=== PATIENT | male | born 1940 | race Caucasian/White ===

== ENCOUNTER 2025-01-08 09:59 | Outpatient (AMB) | payer MEDICARE, BC, SELFPAY ==
--- NOTE | 2025-01-08 10:03 | MHC.PC.OV ---
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 Intake Note: New patient visit Agronomy Specialist Required: No Allergies No Known Allergies Allergy (Verified 01/08/25 10:04) Medication List - Last Reconciled 01/08/25 by Zak Eng MD cholecalciferol (vitamin D3) 25 mcg PO DAILY losartan 25 mg PO DAILY omeprazole 20 mg PO DAILY pravastatin 80 mg PO DAILY Tobacco use date assessed: 01/08/25 Fall risk assessment: No Falls in past year Last assessed Fall Risk: 01/08/25 Dental Screening Dental Screen Date: 01/08/25 Did you have a dental visit in the last 12 months?: Yes Did you have a dental problem in the last 6 months where you did not have access to dental care?: No Was dental information given to patient?: Patient has dentist HPI 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 ?? Prior PCP:? [place] Last office visit/CPE:? May Check up Acute issue(s):? EST Care Swallowing difficulties. Recent MBS & Fiber Optic Scope at [facility] ?? PMHx:? HTN, HLD, Hiatal Hernia, Vit D Def. Arthritis. CLL Dr Sheehan. Tachycardia Dr Alarcon SurgHx:?Appy. B/L Wrists Carpal Tunnel SocHx: Quit Cigs 1989. EtOH: weekly 1 beer. [facility] Social History Housing: House (one in [place] on in [place]) Patient Tobacco Use Status: Former Tobacco user (quit 33 years ago) Cigarette Packs Per Day: 1 Years Smoked: 15 e-Cigarette/Vaping Use: Never Used service: Yes ([employer] for 6 years) Current occupational status: retired Cognitive needs: No Hearing needs: Yes (hearing aid) Vision needs: Yes (reading glasses) Questionnaire PHQ-9 Over the last 2 weeks, how often have you been bothered by any of the following problems? 1. Little interest or pleasure in doing things: not at all 2. Feeling down, depressed, or hopeless: not at all 3. Trouble falling or staying asleep, or sleeping too much: not at all 4. Feeling tired or having little energy: not at all 5. Poor appetite or overeating: not at all 6. Feeling bad about yourself - or that you are a failure or have let yourself or your family down: not at all 7. Trouble concentrating on things, such as reading the newspaper or watching television: not at all 8. Moving or speaking so slowly that other people could have noticed. Or the opposite - being so fidgety or restless that you have been moving around a lot more than usual: not at all 9. Thoughts that you would be better off or of hurting yourself in some way: not at all Total score: 0 Source: Developed by Drs. Dirk You, Jenni Alexandre, Darren Padilla and colleagues, with an educational ming from [employer]. Thrive Questionnaire I am a: Patient What is your living situation today?: I have a steady place to live Within the past 12 months, did the food you bought not last and you didn't have the money to get more?: Never true Within the past 12 months, did you worry whether your food would run out before you got money to buy more?: Never true Do you have trouble paying for medicines?: No Do you have trouble getting transportation to medical appointments?: No Do you have trouble paying your heating and electricity bill?: No Do you have trouble taking care of your child, family member or friend?: No Do you have trouble with day-to-day activities such as bathing, preparing meals, shopping, managing finances, etc.?: No Are you currently unemployed and looking for a job?: No Are you interested in more education?: No Please select the resources that you would like help with: None Currently or been in a relationship where the following occur: No concerns reported THRIVE Score: 0 AUDIT C Alcohol Use Questionnaire (AUDIT-C) 1. How often do you have a drink containing alcohol?: Monthly or less 2. How many drinks containing alcohol do you have on a typical day when you are drinking?: 1 or 2 3. How often do you have six or more drinks on one occasion?: Never Total Score: 1 SHANTAL-7 AMB Questionnaire SHANTAL-7 Feeling nervous, anxious, or on edge: 0 = Not at all Not being able to stop or control worryin = Not at all Worrying too much about different things: 0 = Not at all Trouble relaxin = Not at all Being so restless that it is hard to sit still: 0 = Not at all Becoming easily annoyed or irritable: 0 = Not at all Feeling afraid as if something awful might happen: 0 = Not at all Total SHANTAL-7 score (0-4 normal; 5-9 mild; 10-14 moderate; 15-21 severe): 0 Source: Developed by Drs. Dirk You, Jenni Alexandre, Darren Padilla and colleagues, with an educational ming from [employer]. Physical exam (Primary Care) Vital Signs: Last Vital Signs Temp 97.7 F 01/08/25 10:07 Pulse 95 01/08/25 10:07 Resp 16 01/08/25 10:07 BP 126/72 01/08/25 10:07 Pulse Ox 98 01/08/25 10:07 Oxygen Delivery Method Room Air 01/08/25 10:07 BMI result Body Mass Index 28.5 Tobacco/Smoking Status: Tobacco use Status Tobacco use date assessed 01/08/25 01/08/25 10:14 Patient Tobacco Use Status Former Tobacco user (quit 33 01/08/25 10:14 years ago) e-Cigarette/Vaping Use Never Used 01/08/25 10:14 PHQ-9: PHQ-9 Score PHQ-9: Total score 0 01/08/25 10:50 Currently or been in a relationship where the following occur: No concerns reported Coding Level of Care Code New Pt Level 4 (57184) Diagnoses Hypertension I10 Hyperlipidemia E78.5 Difficulty swallowing R13.10 GERD (gastroesophageal reflux disease) K21.9 Hiatal hernia K44.9 Arthritis M19.90 CLL (chronic lymphocytic leukemia) C91.10 Hand deformity M21.949 Laboratory exam ordered as part of routine general medical examination Z00.00 Assessment & Plan Assessment & Plan (1) Hypertension: Code(s): I10 - Essential (primary) hypertension Category: Medical Plan: Blood pressure is controlled on losartan. Goal is less than 130/80 Continue current medication (2) Hyperlipidemia: Code(s): E78.5 - Hyperlipidemia, unspecified Category: Medical Plan: History of hyperlipidemia and difficulty tolerating statins. He is tolerating pravastatin Continue current medication and we will check lipids (3) Difficulty swallowing: Code(s): R13.10 - Dysphagia, unspecified Category: Medical Plan: Difficulty swallowing and MBS as well as fiberoptic scope has revealed a hiatal hernia. Patient was placed on omeprazole He says he does not have any further follow-up Continue omeprazole He will let me know if difficulty swallowing does not resolve (4) GERD (gastroesophageal reflux disease): Code(s): K21.9 - Gastro-esophageal reflux disease without esophagitis Category: Medical Plan: As above, continue omeprazole (5) Hiatal hernia: Code(s): K44.9 - Diaphragmatic hernia without obstruction or gangrene Category: Medical Plan: As above (6) Arthritis: Code(s): M19.90 - Unspecified osteoarthritis, unspecified site Category: Medical Plan: History of arthritis bilateral hands Check inflammatory markers Use ibuprofen as needed (7) CLL (chronic lymphocytic leukemia): Code(s): C91.10 - Chronic lymphocytic leukemia of B-cell type not having achieved remission Category: Medical Plan: History of CLL which patient says is stable Follow-up with Hematology-Oncology as recommended (8) Hand deformity: Code(s): M21.949 - Unspecified acquired deformity of hand, unspecified hand Category: Medical Plan: check inflammatory markers (9) Laboratory exam ordered as part of routine general medical examination: Code(s): Z00.00 - Encounter for general adult medical examination without abnormal findings Category: Medical Plan: Check labs Orders: Orders Comprehensive [place]. Panel Fast 01/08/25 Z00.00 - Encounter for general adult medical examination without abnormal findings Microalbumin, Random (w Creat) 01/08/25 I10 - Essential (primary) hypertension UA CC w/rflx Micro + Cult 01/08/25 Z00.00 - Encounter for general adult medical examination without abnormal findings Vitamin D 25-OH Total 01/08/25 E55.9 - Vitamin D deficiency, unspecified Rheumatoid Factor 01/08/25 M19.90 - Unspecified osteoarthritis, unspecified site Cyclic Citrullinated Peptide 01/08/25 M19.90 - Unspecified osteoarthritis, unspecified site CRP High Sensitivity 01/08/25 M19.90 - Unspecified osteoarthritis, unspecified site Complete Blood Count Auto Diff 01/08/25 Z00.00 - Encounter for general adult medical examination without abnormal findings Lipid Panel 01/08/25 Z00.00 - Encounter for general adult medical examination without abnormal findings Prostate Specific Antigen Scr 01/08/25 Z12.5 - Encounter for screening for malignant neoplasm of prostate TSH reflex Free T4 01/08/25 Z00.00 - Encounter for general adult medical examination without abnormal findings Erythrocyte Sedimentation Rate 01/08/25 M19.90 - Unspecified osteoarthritis, unspecified site
[2025-01-08 10:07] VITALS: BP 126/72; PULSE 95; RESP 16; TEMP 36.5; O2SAT 98; BMI 28.5
--- OUTSIDE RECORDS SUMMARY | 2025-01-08 11:59 | XMS_ITS | Clinical Summary ---
Author Organization [facility] Address [address] [place] [address] [place] [phone] Phone Care Team Providers Care Elevator Examiner Name Role Phone Pcp, Unknown Primary Care Provider Unavailabl e Encounters Date Type Department Care Team Description 01/01/2025 Ancillary Orders [facility],Outside Imaging [address] [place] [address] Unknown, MD Giuseppe 12/28/2024 12:00 PM EDT Office Visit [facility] at [address] [phone] Mathew Hargrove PA-C Primary osteoarthritis of right wrist (Primary Dx); Status post proximal row carpectomy of wrist 12/26/2024 - 12/26/2024 11:59 PM EDT Hospital Encounter [facility],Outside Imaging [address] [place] [address] Unknown, UnknownMD Discharge Disposition: Home or Self Care from Last 3 Months Social History Tobacco Use Types Packs/Day Years Used Date Smoking Tobacco: Never Assessed Education Answer Date Recorded Are you interested in more education? Not on sudha e 12/28/2024 Are you concerned about learning? Not on file 12/28/2024 No 12/28/2024 No 12/28/2024 Digital Access Answer Date Recorded No 12/28/2024 No 12/28/2024 Reliable internet access at home? Not on file 12/28/2024 Device with a working camera? Not on file Sex and Gender Information Value Date Recorded Sex Assigned at Not on file Legal Sex Male 11:37 AM EDT Gender Identity Not on file Sexual Orientation Not on file Plan of Treatment Upcoming Encounters Date Type Department Care Team (Late st Contact Info) Description 01/31/2025 11:00 AM EST Office Visit [facility] Orth[facility] & Sports Medicine [address] [place] [phone] Amanda Cortés PA-C [address] [place] [address] Orthopedics & Sports Medicine, [facility] [place] [address] [email or web address] Health Maintenance Due Date Last Done Comments Adult Td,Tdap Booster 1940 DEPRESSION SCREENING 1952 PNEUMOCOCCAL VACCINES (50+ y ears) (1 of 1 - PCV) 02/18/1990 ZOSTER VACCINES (1 of 2) 02/18/1990 RSV VACCINE (1 - 1-dose 75+ series) 02/18/2015 INFLUENZA VACCINE (#1) 2024 COVID-19 VACCINE ( - 2024-2 6 season) 2024 HEPATITIS A VACCINES Aged Out No long er eligible based on patient's age to complete this topic HIB VACCINES Aged Out No longer eligi ble based on patient's age to complete this topic MENINGOCOCCAL VACCINES (ACWY) Aged Out No longer eligible based on patient's age to complete this topic MENINGOCOCCAL VACCINES (B) Aged Out N o longer eligible based on patient's age to complete this topic Medical Devices Not on file Procedures Procedure Name Priority Date/Time Associated Diagnosis Comments XR UPPER EXTREMITY OUTSIDE (NO INTERPRETATION) Routine 12/26/2024 12:00 AM EDT from Last 3 Months Results * XR Upper Extremity Outside (No Interpretation) (12/26/2024 12:00 AM EDT) Narrative SYSTEMGENERATED, DOCUMENTATION - 01/01/2025 10:06 AM EDT This study is for PACS storage only and not for interpretation. us Unknown Unknown MD [facility] OUTSIDE IMAGING W/OUT INT ERPRETATION Final Result from Last 3 Months Insurance MEDICARE PART A & B [employer] MEDEX SUPPLEMENT MEDICARE PART A & B [employer] MEDEX SUPPLEMENT MEDICARE PART A & B [employer] MEDEX SUPPLEMENT MEDICARE PART A & B [employer] MEDEX SUPPLEMENT MEDICARE PART A & B [employer] [place] MED[place] SUPPLE[place] MEDICARE PART A & B [employer] MEDEX SUPPLEMENT Care Teams Elevator Examiner Relationship Specialty Start Date End Date Pcp, Unknown PCP - General 12/28/24 Additional Source Comments The information contained in this document represents components of the legal health record. It is not the complete legal health record.[facility]
--- OUTSIDE RECORDS SUMMARY | 2025-01-08 11:59 | XMS_ITS | Clinical Summary ---
Author Organization [facility] Address [address] [place] [address] Care Team Providers Care Synthetic Chemist Name Role Phone Stan Loco MD Primary Care Provider [phone] Allergies No known active allergies Medications Medication Sig Dispensed Refills Start Date End Date Status losartan (COZAAR) tablet 25 mg Take 1 tablet (25 mg total) by mouth daily. 0 12/05/2019 Active pravastatin (PRAVACHOL) tablet 80 mg Take 1 tablet (80 mg total) by mouth daily. 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 Chronic lymphocytic leukemia 11/04/2017 Overview: Overview: Monoclonal B-cell Lymphocytosis GERD (gastroesophageal reflux disease) 8 Colon polyp 11/04/2017 Pulmonary nodules 11/04/2017 Overview: Overview: 2016 CT Bilateral, Stable, small pulmonary nodules Social History Tobacco Use Types Packs/Day Years Used Date Smoking Tobacco: Never Assessed Sex and Gender Information Value Date Recorded Sex Assigned at Not on file Gender Identity Not on file Sexual Orientation Not on file Job Start Date Occupation Industry Not on file Not on file Not on file Last Filed Vital Signs Vital Sign Reading Time Taken Comments Blood Pressure 188/63 11/30/2023 11:17 AM EDT Pulse 55 11/30/2023 11:17 AM EDT Temperature 36.3 C (97.4 F) 11/30/2023 11:17 AM EDT Respiratory Rate - - Oxygen Saturation 100% 11/30/2023 11:17 AM EDT Inhaled Oxygen Concentration - - Weight 80.7 kg (178 lb) 11/30/2023 11:17 AM EDT Height 180.3 cm (5' 11 ) 11/27/2021 11:18 AM EDT Body Mass Index 24.83 11/27/2021 11:18 AM EDT Plan of Treatment Health Maintenance Due Date Last Done Comments Pneumococcal Vaccine (1 of 2 - PCV) 02[birth year]18/1946 Depression Screening 1952 Preventative Health Evaluation 02/18/1958 DTap / Tdap / Td (1 - Tdap) 02/18/1959 Shingrix-Zoster Vaccine (1 o f 2) 02/18/1959 Fall Risk Assessment 02/18/2005 RSV Adult > 60+ Yrs or (1 - 1-dose 75+ series) 02/18/2015 COVID-19 Vaccine (3 - Pfizer risk series) 06/09/2020 05/12/2020, 04/20/2020 Influenza Vaccine (#1) 2024 02/15/2017 Hepatitis B Vaccines Aged Out No long er eligible based on patient's age to complete this topic RSV Ped < 20 months Aged Out No longe r eligible based on patient's age to complete this topic Care Teams Synthetic Chemist Relationship Specialty Start Date End Date Stan Loco MD PCP - General Internal Medicine 12/06/19
--- OUTSIDE RECORDS SUMMARY | 2025-01-08 11:59 | XMS_ITS | Clinical Summary ---
Author Organization [facility] Address [address] [place] [address] Phone Care Team Providers Care Catalyst Supervisor Name Role Phone Stan Loco MD Primary Care Provider Allergies No known active allergies Medications losartan (COZAAR) 25 mg tablet Take 1 tablet (25 mg total) by mouth 1 (one) time each day. Active omeprazole (PriLOSEC) [address] capsule Take 1 capsule (20 mg total) by mouth 1 (one) time each day. Active pravastatin (PRAVACHOL) 80 mg tablet Take 1 tablet (80 mg total) by mouth 1 (one) time each day. Active Active Problems Problem Noted Date Diagnosed Date CLL (chronic lymphocytic yair kemia) ([facility] V24, [facility] V28) 12/07/2024 Anemia 12/07/2024 Encounters Date Type Department Care Team Description 12/07/2024 11:15 AM EDT Office Visit [facility] Hematology Oncology [address] [place] [phone] Janae Jones MD CLL (chronic lymphocytic leukemia) ([facility] V24, [facility] V28) (Primary Dx); Anemia, unspecified type; Oropharyngeal dysphagia 11/16/2024 Telephone [facility] Hematology Oncology [address] [place] [phone] Janae Jones MD from Last 3 Months Immunizations Immunization Administration Dates Next Due Pfizer SARS-CoV-2 COVID-19, mRNA, LNP-S, preservative free 05/12/2020,04/20/2020 Social History Tobacco Use Types Packs/Day Years Used Date Smoking Tobacco: Former Cigarettes 1 0 - 1969 Tobacco Cessation:Counseling Given: Not Answered Comments:Patient is uncertain of start date - quit in 1989 Sex and Gender Information Value Date Recorded Sex Assigned at Not on file Legal Sex Male 6:38 AM EST Gender Identity Not on file Sexual Orientation Not on file Obstetrics History Last Filed Vital Signs Vital Sign Reading Time Taken Comments Blood Pressure 161/67 12/07/2024 11:26 AM EDT Pulse 54 12/07/2024 11:26 AM EDT Temperature 36.8 C (98.2 F) 12/07/2024 11:26 AM EDT Respiratory Rate - - Oxygen Saturation 99% 12/07/2024 11:26 AM EDT Inhaled Oxygen Concentration - - Weight 81.2 kg (179 lb) 12/07/2024 11:26 AM EDT Height 180.3 cm (5' 11 ) 12/07/2024 11:26 AM EDT Body Mass Index 24.97 12/07/2024 11:26 AM EDT Plan of Treatment Upcoming Encounters Date Type Department Care Team (Late st Contact Info) Description 12/06/2025 11:00 AM EDT Office Visit [facility] Hematology Oncology [address] [place] [phone] Susanne-Janae Conway MD [address] [place] [phone] Health Maintenance Due Date Last Done Comments Zoster Vaccines (1 of 2) 02/18/1959 RSV Immunization Adult Patients (1 - 1-dose 75+ series) 02/18/2015 Cholesterol Screening (Lipid Panel) 02/20/2022 Falls Risk Assessment 02/20/2022 Medicare Annual Wellness Visit 02/20/2022 Social Influencers of Health Screening 02/20/2022 Depression Screening 03/14/2024 COVID-19 Vaccine ( season) 2024 12/11/2020, 05/12/2020, 04/20/2020 Influenza Vaccine (#1) 2024 , 02/12/2022, 01/15/2021, Additional history exists Hypertension/CHF/CAD Annual BMP Blood Test 11/26/2025 11/26/2024 DTaP,Tdap,and Td Vaccines (2 - Td or Tdap) 09/17/2032 09/17/2022 Pneumococcal Vaccine: 50+ Years Completed 09/17/2022 HIB Vaccines Aged Out No longer eligi ble based on patient's age to complete this topic HPV Vaccines Aged Out No longer eligi ble based on patient's age to complete this topic Hepatitis A Vaccines Aged Out No long er eligible based on patient's age to complete this topic Hepatitis B Vaccines Aged Out No long er eligible based on patient's age to complete this topic IPV Vaccines Aged Out No longer eligi ble based on patient's age to complete this topic MMR Vaccines Aged Out No longer eligi ble based on patient's age to complete this topic Meningococcal ACWY Vaccine Aged Out N o longer eligible based on patient's age to complete this topic Meningococcal B Vaccine Aged Out No l onger eligible based on patient's age to complete this topic RSV Immunization Patients Under 20 months Aged Out No longer eligible based on patient's age to complete this topic Varicella Vaccines Aged Out No longer eligible based on patient's age to complete this topic Procedures Procedure Name Priority Date/Time Associated Diagnosis Comments CBC WITH AUTO DIFFERENTIAL Routine 11/26/2024 12:30 PM EDT CLL (chronic lymphocytic leukemia) ([facility] V24, [facility] V28) CBC AND DIFFERENTIAL Routine 11/26/2024 12:30 PM EDT CLL (chronic lymphocytic leukemia) ([facility] V24, [facility] V28) COMPREHENSIVE METABOLIC PANEL Routine 11/26/2024 12:30 PM EDT CLL (chronic lymphocytic leukemia) ([facility] V24, [facility] V28) LACTATE DEHYDROGENASE Routine 11/26/2024 12:30 PM EDT CLL (chronic lymphocytic leukemia) ([facility] V24, [facility] V28) IMMUNOGLOBULIN IGG Routine 11/26/2024 12 :30 PM EDT CLL (chronic lymphocytic leukemia) ([facility] V24, [facility] V28) from Last 3 Months Results * (ABNORMAL) CBC auto differential (11/26/2024 12:30 PM EDT) [facility] WBC 8.5 4.8 - 10.8 K/mcL LAB HEMETOLOGY METHOD 11/26/2024 2:02 PM [facility] RBC 4.20(L) 4.50 - 5.50 M/mcL LAB [facility] Hemoglobin 12.8(L) 13.5 - 17.5 g/dL LAB HEMETOLOGY METHOD 11/26/2024 2:02 PM [facility] Hematocrit 38.6(L) 42.0 - 54.0 % LAB HEMETOLOGY METHOD 11/26/2024 2:02 PM [facility] MCV 91.5 79.0 - 98.0 FL LAB HEMETOLOGY METHOD 11/26/2024 2:02 PM [facility] MCH 30.3 27.0 - 32.0 pcg LAB HEMETOLOGY METHOD 11/26/2024 2:02 PM [facility] MCHC 33.2 32.0 - 37.0 g/dL LAB HEMETOLOGY METHOD 11/26/2024 2:02 PM [facility] RDW 13.9 11.0 - 15.0 % LAB HEMETOLOGY METHOD 11/26/2024 2:02 PM [facility] Platelets 256 130 - 400 K/mcL LAB HEMETOLOGY METHOD 11/26/2024 2:02 PM [facility] MPV 9.2 7.0 - 11.0 FL LAB HEMETOLOGY METHOD 11/26/2024 2:02 PM [facility] NRBC 0.0 <1.0 % LAB HEMETOLOGY METHOD 11/26/2024 2:02 PM [facility] NRBC Absolute 0.00 <0.10 K/mcL LAB HEMETOLOGY METHOD 11/26/2024 2:02 PM [facility] Neutrophils Relative 49.5 % LAB HEMETOLOGY METHOD 11/26/2024 2:02 PM [facility] Lymphocytes Relative 35.6 % LAB HEMETOLOGY METHOD 11/26/2024 2:02 PM [facility] Monocytes Relative 9.8 % LAB HEMETOLOGY METHOD 11/26/2024 2:02 PM [facility] Eosinophils Relative 3.3 % LAB HEMETOLOGY METHOD 11/26/2024 2:02 PM [facility] Basophils Relative 1.2 % LAB HEMETOLOGY METHOD 11/26/2024 2:02 PM [facility] Immature Granulocytes Relative 0.6 % LAB HEMETOLOGY METHOD 11/26/2024 2:02 PM [facility] Neutrophils Absolute 4.20 1.50 - 7.00 K/mcL LAB HEMETOLOGY METHOD 11/26/2024 2:02 PM [facility] Lymphocytes Absolute 3.02 1.00 - 5.00 K/mcL LAB HEMETOLOGY METHOD 11/26/2024 2:02 PM [facility] Monocytes Absolute 0.83 0.20 - 1.00 K/mcL LAB HEMETOLOGY METHOD 11/26/2024 2:02 PM [facility] Eosinophils Absolute 0.28 0.00 - 0.50 K/mcL LAB HEMETOLOGY METHOD 11/26/2024 2:02 PM [facility] Basophils Absolute 0.10 0.00 - 0.20 K/mcL LAB HEMETOLOGY METHOD 11/26/2024 2:02 PM [facility] Immature Granulocytes Absolute 0.05(H) 0.00 - 0.03 K/mcL LAB HEMETOLOGY METHOD 11/26/2024 2:02 PM EDT [facility] Blood Venous blood specimen / Unknown Venipuncture / Unknown 11/26/2024 12:30 PM EDT 11/26/2024 1:35 PM EDT us Janae Jones MD LAB BLOOD ORDERABLE S Final Result [facility] [address] [place] [address], [place] [phone] * Lactate dehydrogenase (11/26/2024 12:30 PM EDT) LDH 177 120 - 246 unit/L LAB CHEMISTRY METHOD 11/26/2024 2:15 PM EDT [facility] Blood Venous blood specimen / Unknown Venipuncture / Unknown 11/26/2024 12:30 PM EDT 11/26/2024 1:35 PM EDT us Janae Jones MD LAB BLOOD ORDERABLE S Final Result Performing Organization Address City/[facility]/ZIP Co de Phone Number [facility] [address] [place] [address], [place] [phone] * Immunoglobulin IgG (11/26/2024 12:30 PM EDT) Total IgG 1,250 549 - 1,584 mg/dL LAB CHEMISTRY METHOD 11/26/2024 2:15 PM EDT [facility] Blood Venous blood specimen / Unknown Venipuncture / Unknown 11/26/2024 12:30 PM EDT 11/26/2024 1:35 PM EDT us Janae Jones MD LAB BLOOD ORDERABLE S Final Result [facility] [address] [place] [address], [place] [phone] * Comprehensive metabolic panel (11/26/2024 12:30 PM EDT) Sodium 136 133 - 145 mmol/L LAB CHEMISTRY METHOD 11/26/2024 2:15 PM [facility] Potassium 4.6 3.5 - 5.5 mmol/L LAB CHEMISTRY METHOD 11/26/2024 2:15 PM [facility] Chloride 105 96 - 110 mmol/L LAB CHEMISTRY METHOD 11/26/2024 2:15 PM [facility] CO2 26 21 - 32 mmol/L LAB CHEMISTRY METHOD 11/26/2024 2:15 PM [facility] Anion Gap 5 3 - 11 LAB CHEMISTRY METHOD 11/26/2024 2:15 PM [facility] Glucose 89 70 - 100 mg/dL LAB CHEMISTRY METHOD 11/26/2024 2:15 PM [facility] BUN 19 5 - 25 mg/dL LAB CHEMISTRY METHOD 11/26/2024 2:15 PM [facility] Creatinine 1.02 0.70 - 1.30 mg/dL LAB CHEMISTRY METHOD 11/26/2024 2:15 PM [facility] eGFR 72 >=60 mL/min/1. 73m2 LAB CHEMISTRY METHOD 11/26/2024 2:15 PM [facility] Comment:Calculation based on the Chronic Kidney Disease Epidemiology Collaboration (CKD-EPI) equation refit without adjustment for race. BUN/Creatinine Ratio 18.6 LAB CHEMISTRY METHOD 11/26/2024 2:15 PM [facility] Calcium 9.1 8.5 - 10.5 mg/dL LAB CHEMISTRY METHOD 11/26/2024 2:15 PM [facility] AST (SGOT) 20 10 - 42 unit/L LAB CHEMISTRY METHOD 11/26/2024 2:15 PM [facility] ALT (SGPT) 17 10 - 60 unit/L LAB CHEMISTRY METHOD 11/26/2024 2:15 PM EDT [facility] Alkaline Phosphatase 62 42 - 121 unit/L LAB CHEMISTRY METHOD 11/26/2024 2:15 PM EDT [facility] Total Protein 6.9 6.0 - 8.0 g/dL LAB CHEMISTRY METHOD 11/26/2024 2:15 PM EDT [facility] Albumin 3.7 3.2 - 5.0 g/dL LAB CHEMISTRY METHOD 11/26/2024 2:15 PM EDT [facility] Total Bilirubin 0.6 0.0 - 1.4 mg/dL LAB CHEMISTRY METHOD 11/26/2024 2:15 PM EDT [facility] Blood Venous blood specimen / Unknown Venipuncture / Unknown 11/26/2024 12:30 PM EDT 11/26/2024 1:35 PM EDT Subramrd Jones MD LAB BLOOD ORDERABLE S Final Result [facility] [address] [place] [address], from Last 3 Months Insurance MEDICARE [facility] Care Teams Catalyst Supervisor Relationship Specialty Start Date End Date Stan Loco MD [address] [place] [address] PCP - General Internal Medicine 06/23/17
== END 2025-01-08 10:45 | disposition home or self-care (01) ==
LOC: HO.HMCFM 10:01
PROVIDERS: Visit Provider Family Medicine
DX: I10 Essential (primary) hypertension (principal); E78.5 Hyperlipidemia, unspecified; R13.10 Dysphagia, unspecified; K21.9 Gastro-esophageal reflux disease without esophagitis; K44.9 Diaphragmatic hernia without obstruction or gangrene; M19.90 Unspecified osteoarthritis, unspecified site; C91.10 Chronic lymphocytic leukemia of B-cell type not having achieved remission; M21.949 Unspecified acquired deformity of hand, unspecified hand; Z00.00 Encounter for general adult medical examination without abnormal findings

== ENCOUNTER → 2025-01-08 09:59 | Outpatient (BNVA) | payer MEDICARE, BC, SELFPAY | PROVIDERS: Visit Provider Family Medicine | DX: I10 Essential (primary) hypertension (principal); E78.5 Hyperlipidemia, unspecified; R13.10 Dysphagia, unspecified; K21.9 Gastro-esophageal reflux disease without esophagitis; K44.9 Diaphragmatic hernia without obstruction or gangrene; M19.90 Unspecified osteoarthritis, unspecified site; C91.10 Chronic lymphocytic leukemia of B-cell type not having achieved remission; M21.949 Unspecified acquired deformity of hand, unspecified hand | CPT/HCPCS: 99202 ==

== ENCOUNTER 2025-01-24 10:38 | Outpatient (REF) | payer MEDICARE, BC, SELFPAY ==
--- OUTSIDE RECORDS SUMMARY | 2025-01-24 13:02 | XMS_ITS | Clinical Summary ---
Author Organization [facility] Address [address] [place] [address] Phone Care Team Providers Care Acute Care Certified Nursing Assistant Name Role Phone Stan Loco MD Primary [...] Diagnosed Date CLL (chronic lymphocytic yair kemia) ([facility] V24, [facility] V28) 12/07/2024 Anemia 12/07/2024 Encounters Date Type Department Care Team Description 12/07/2024 11:15 AM EDT Office Visit [facility] Hematology Oncology [address] [place] [phone] Janae Jones MD CLL (chronic lymphocytic leukemia) ([facility] V24, [facility] V28) (Primary Dx); Anemia, unspecified type; Oropharyngeal dysphagia 11/16/2024 Telephone [facility] Hematology Oncology [address] [place] [phone] Janae Jones MD from Last 3 Months Immunizations Immunization Administration Dates Next Due Pfizer SARS-CoV-2 COVID-19, mRNA, LNP-S, preservative free 05/12/2020,04/20/2020 Social History Tobacco Use Types Packs/Day Years Used Date Smoking Tobacco: Former Cigarettes 0 1 990 - 1970 Tobacco Cessation:Counseling Given: Not Answered Comments:Patient is [...] Description 12/06/2025 11:00 AM EDT Office Visit [facility] Hematology Oncology [address] [place] [phone] Susanne-Janae Conway MD [address] [place] [phone] Health Maintenance Due Date Last Done Comments Zoster Vaccines (1 of 2) 02/18/1959 RSV Immunization Adult Patients (1 - 1-dose 75+ series) 02/18/2015 Cholesterol Screening (Lipid Panel) 02/20/2022 Falls Risk Assessment 02/20/2022 Medicare Annual Wellness Visit 02/20/2022 Social Influencers of Health Screening 02/20/2022 Depression Screening 03/14/2024 COVID-19 Vaccine ( season) 2024 12/11/2020, 05/12/2020, 04/20/2020 Influenza Vaccine (#1) 2024 3, 02/12/2022, 01/15/2021, Additional history exists Hypertension/CHF/CAD Annual [...] 12:30 PM EDT CLL (chronic lymphocytic leukemia) ([facility] V24, [facility] V28) CBC AND DIFFERENTIAL Routine 11/26/2024 12:30 PM EDT CLL (chronic lymphocytic leukemia) ([facility] V24, [facility] V28) COMPREHENSIVE METABOLIC PANEL Routine 11/26/2024 12:30 PM EDT CLL (chronic lymphocytic leukemia) ([facility] V24, [facility] V28) LACTATE DEHYDROGENASE Routine 11/26/2024 12:30 PM EDT CLL (chronic lymphocytic leukemia) ([facility] V24, [facility] V28) IMMUNOGLOBULIN IGG Routine 11/26/2024 12 :30 PM EDT CLL (chronic lymphocytic leukemia) ([facility] V24, [facility] V28) from Last 3 Months Results * (ABNORMAL) CBC auto differential (11/26/2024 12:30 PM EDT) [facility] WBC 8.5 4.8 - 10.8 K/mcL LAB HEMETOLOGY METHOD 11/26/2024 2:02 PM [facility] RBC 4.20(L) 4.50 - 5.50 M/mcL LAB HEMETOLOGY METHOD 11/[facility]24 [facility] Hemoglobin 12.8(L) 13.5 - 17.5 g/dL LAB HEMETOLOGY METHOD 11/26/2024 2:02 PM [facility] Hematocrit 38.6(L) 42.0 - 54.0 % LAB HEMETOLOGY METHOD 11/26/2024 2:02 PM [facility] MCV 91.5 79.0 - 98.0 FL LAB HEMETOLOGY METHOD 11/26/2024 2:02 PM [facility] MCH 30.3 27.0 - 32.0 pcg LAB HEMETOLOGY METHOD 11/26/2024 2:02 PM [facility] MCHC 33.2 32.0 - 37.0 g/dL LAB HEMETOLOGY METHOD 11/26/2024 2:02 PM [facility] RDW 13.9 11.0 - 15.0 % LAB HEMETOLOGY METHOD 11/26/2024 2:02 PM [facility] Platelets 256 130 - 400 K/mcL LAB HEMETOLOGY METHOD 11/26/2024 2:02 PM [facility] MPV 9.2 7.0 - 11.0 FL LAB HEMETOLOGY METHOD 11/26/2024 2:02 PM [facility] NRBC 0.0 <1.0 % LAB HEMETOLOGY METHOD 11/26/2024 2:02 PM [facility] NRBC Absolute 0.00 <0.10 K/mcL LAB HEMETOLOGY METHOD 11/26/2024 2:02 PM [facility] Neutrophils Relative 49.5 % LAB HEMETOLOGY METHOD 11/26/2024 2:02 PM [facility] Lymphocytes Relative 35.6 % LAB HEMETOLOGY METHOD 11/26/2024 2:02 PM [facility] Monocytes Relative 9.8 % LAB HEMETOLOGY METHOD 11/26/2024 2:02 PM [facility] Eosinophils Relative 3.3 % LAB HEMETOLOGY METHOD 11/26/2024 2:02 PM [facility] Basophils Relative 1.2 % LAB HEMETOLOGY METHOD 11/26/2024 2:02 PM [facility] Immature Granulocytes Relative 0.6 % LAB HEMETOLOGY METHOD 11/26/2024 2:02 PM [facility] Neutrophils Absolute 4.20 1.50 - 7.00 K/mcL LAB HEMETOLOGY METHOD 11/26/2024 2:02 PM [facility] Lymphocytes Absolute 3.02 1.00 - 5.00 K/mcL LAB HEMETOLOGY METHOD 11/26/2024 2:02 PM [facility] Monocytes Absolute 0.83 0.20 - 1.00 K/mcL LAB HEMETOLOGY METHOD 11/26/2024 2:02 PM [facility] Eosinophils Absolute 0.28 0.00 - 0.50 K/mcL LAB HEMETOLOGY METHOD 11/26/2024 2:02 PM [facility] Basophils Absolute 0.10 0.00 - 0.20 K/mcL LAB HEMETOLOGY METHOD 11/26/2024 2:02 PM [facility] Immature Granulocytes Absolute 0.05(H) 0.00 - 0.03 K/mcL LAB HEMETOLOGY METHOD 11/26/2024 2:02 PM EDT [facility] Blood Venous blood specimen / Unknown Venipuncture / Unknown 11/26/2024 12:30 PM EDT 11/26/2024 1:35 PM EDT us Janae Jones MD LAB BLOOD ORDERABLE S Final Result Performing Organization Address City/[facility]/ZIP Co de Phone Number [facility] [address] [place] [address], [place] [phone] * Lactate dehydrogenase (11/26/2024 12:30 PM EDT) LDH 177 120 - 246 unit/L LAB CHEMISTRY METHOD 11/26/2024 2:15 PM EDT [facility] Blood Venous blood specimen / Unknown Venipuncture / Unknown 11/26/2024 12:30 PM EDT 11/26/2024 1:35 PM EDT us Janae Jones MD LAB BLOOD ORDERABLE S Final Result Performing Organization Address City/[facility]/ZIP Co de Phone Number [facility] [address] [place] [address], [place] [phone] * Immunoglobulin IgG (11/26/2024 12:30 PM EDT) Total IgG 1,250 549 - 1,584 mg/dL LAB CHEMISTRY METHOD 11/26/2024 2:15 PM EDT [facility] Blood Venous blood specimen / Unknown Venipuncture / Unknown 11/26/2024 12:30 PM EDT 11/26/2024 1:35 PM EDT us Janae Jones MD LAB BLOOD ORDERABLE S Final Result [facility] [address] [place] [address], [place] [phone] * Comprehensive metabolic panel (11/26/2024 12:30 PM EDT) Sodium 136 133 - 145 mmol/L LAB CHEMISTRY METHOD 11/26/2024 2:15 PM [facility] Potassium 4.6 3.5 - 5.5 mmol/L LAB CHEMISTRY METHOD 11/26/2024 2:15 PM [facility] Chloride 105 96 - 110 mmol/L LAB CHEMISTRY METHOD 11/26/2024 2:15 PM [facility] CO2 26 21 - 32 mmol/L LAB CHEMISTRY METHOD 11/26/2024 2:15 PM [facility] Anion Gap 5 3 - 11 LAB CHEMISTRY METHOD 11/26/2024 2:15 PM [facility] Glucose 89 70 - 100 mg/dL LAB CHEMISTRY METHOD 11/26/2024 2:15 PM [facility] BUN 19 5 - 25 mg/dL LAB CHEMISTRY METHOD 11/26/2024 2:15 PM [facility] Creatinine 1.02 0.70 - 1.30 mg/dL LAB CHEMISTRY METHOD 11/26/2024 2:15 PM [facility] eGFR 72 >=60 mL/min/1. 73m2 LAB CHEMISTRY METHOD 11/26/2024 2:15 PM [facility] Comment:Calculation based on the Chronic Kidney Disease Epidemiology Collaboration (CKD-EPI) equation refit without adjustment for race. BUN/Creatinine Ratio 18.6 LAB CHEMISTRY METHOD 11/26/2024 2:15 PM [facility] Calcium 9.1 8.5 - 10.5 mg/dL LAB CHEMISTRY METHOD 11/26/2024 2:15 PM [facility] AST (SGOT) 20 10 - 42 unit/L LAB CHEMISTRY METHOD 11/26/2024 2:15 PM [facility] ALT (SGPT) 17 10 - 60 unit/L LAB CHEMISTRY METHOD 11/26/2024 2:15 PM EDT [facility] Alkaline Phosphatase 62 42 - 121 unit/L LAB CHEMISTRY METHOD 11/26/2024 2:15 PM EDT [facility] Total Protein 6.9 6.0 - 8.0 g/dL LAB CHEMISTRY METHOD 11/26/2024 2:15 PM EDT [facility] Albumin 3.7 3.2 - 5.0 g/dL LAB CHEMISTRY METHOD 11/26/2024 2:15 PM EDT [facility] Total Bilirubin 0.6 0.0 - 1.4 mg/dL LAB CHEMISTRY METHOD 11/26/2024 2:15 PM EDT [facility] Blood Venous blood specimen / Unknown Venipuncture / Unknown 11/26/2024 12:30 PM EDT 11/26/2024 1:35 PM EDT Subramrd Jones MD LAB BLOOD ORDERABLE S Final Result [facility] [address] [place] [address], from Last 3 Months Insurance MEDICARE [facility] Care Teams Acute Care Certified Nursing Assistant Relationship Specialty Start Date End Date Stan Loco MD [address] [place] [address] PCP - General Internal Medicine 06/23/17
--- OUTSIDE RECORDS SUMMARY | 2025-01-24 13:02 | XMS_ITS | Clinical Summary ---
Author Organization [facility] Address [address] [place] [address] [place] [phone] Phone Care Team Providers Care Bun Machine Operator Name Role Phone Pcp, Unknown Primary Care Provider Unavailabl e Encounters Date Type Department Care Team Description 01/01/2025 Ancillary Orders [facility],Outside Imaging [address] [place] [address] Unknown, MD Giuseppe 12/28/2024 12:00 PM EDT Office Visit [facility] at [address] [phone] Mathew Hargrove PA-C Primary osteoarthritis of right wrist (Primary Dx); Status post proximal row carpectomy of wrist 12/26/2024 - 12/26/2024 11:59 PM EDT Hospital Encounter [facility],Outside Imaging [address] [place] [address] Unknown, UnknownMD Discharge Disposition: Home or Self [...] Description 01/31/2025 11:00 AM EST Office Visit [facility] Orthopedics & Sports Medicine [address] [place] [phone] Amanda Cortés PA-C [address] [place] [address] Orthopedics & Sports Medicine, [facility] [place] [address] Health Maintenance Due Date Last Done Comments [...] patient's age to complete this topic IPV VACCINES Aged Out No longer eligi ble [...] Months Insurance MEDICARE PART A & B [employer] SUPP[employer]MENT MEDICARE PART A & B [place] [employer] MEDICARE PART A & B [place] [employer] SUPP[employer]MENT MEDICARE PART A & B [employer] MEDEX SUPPLEMENT MEDICARE PART A & B [employer] MEDEX SUPPLEMENT MEDICARE PART A & B [employer] SU[employer]MENT Care Teams Bun Machine Operator Relationship Specialty Start Date End Date Pcp, Unknown PCP - General 12/28/24 Additional Source Comments The information contained in this document represents components of the legal health record. It is not the complete legal health record.[facility]
--- OUTSIDE RECORDS SUMMARY | 2025-01-24 13:03 | XMS_ITS | Clinical Summary ---
Author Organization [facility] Address [address] [place] [address] Care Team Providers Care Playground Aide Name Role Phone Stan Loco MD Primary Care Provider [phone] Allergies No known active allergies Medications Medication [...] age to complete this topic Care Teams Playground Aide Relationship Specialty Start Date End Date Stan Loco MD PCP - General Internal Medicine 12/06/19
[2025-01-24 14:20] LABS: MANUAL DIFF FLAG NO
[2025-01-24 14:29] LABS: Hematocrit 40.5 % (42.0-52.0); Hemoglobin 13.3 g/dl (14.0-18.0); Imm Gran Abs Auto 0.03 X10*3/uL (0.00-0.03); Imm Gran Pct Auto 0.4 % (0.0-0.4); Lymphocytes Absolute Auto 2.9 X10*3/uL (1.2-4.9); Mean Corpuscular HGB Conc 32.8 g/dl (31.0-36.0); Mean Corpuscular Hemoglobin 29.6 pg (27.0-33.0); Mean Corpuscular Volume 90.2 fL (80.0-98.0); NRBC Abs Auto 0.000 X10*3/uL (0.0-0.012); NRBC Pct Auto 0.0 /100WBC (0.0-0.2); Platelet Count 257 X10*3/uL (160-400); Red Blood Count 4.49 X10*6/uL (4.60-5.80); White Blood Count 7.3 X10*3/uL (4.8-10.8)
[2025-01-24 15:05] LABS: Appearance Urine Clear; Glucose Urine UA Negative (Negative); PH 7.0 (5.0-9.0); Specific Gravity - Urine 1.015 (1.005-1.025); UMIC TRIGGER UACC YES
[2025-01-24 15:13] LABS: Alanine Aminotransferase 17 U/L (0-40); Albumin Level 4.4 g/dL (3.5-5.0); Alkaline Phosphatase 63 U/L (39-117); Anion Gap 9 (12-20); Aspartate Amino Transferase 28 U/L (5-37); Blood Urea Nitrogen 18 mg/dL (9-16); Calcium 9.3 mg/dL (8.4-10.2); Carbon Dioxide 27 mmol/L (22-29); Chloride 107 mmol/L (96-108); Cholesterol 167 mg/dL (<200); Estimated Glomerular Filt Rate > 60; HDL Cholesterol 56 mg/dL (>40); Potassium 4.2 mmol/L (3.3-5.1); Sodium 139 mmol/L (135-145); Total Protein 7.3 g/dL (6.5-8.0); Triglycerides 82 mg/dL (<150)
[2025-01-24 15:25] LABS: Microalbum/Creatinine Ratio Ur 13.2 ug/mg cr (<30)
== END 2025-01-24 10:39 | disposition home or self-care (01) ==
LOC: HO.WFDLDS 10:38
PROVIDERS: Visit Provider Family Medicine
DX: Z00.00 Encounter for general adult medical examination without abnormal findings (principal); Z12.5 Encounter for screening for malignant neoplasm of prostate; M19.90 Unspecified osteoarthritis, unspecified site; E55.9 Vitamin D deficiency, unspecified; I10 Essential (primary) hypertension
CPT/HCPCS: 36415; 80053; 80061; 81001; 81003; 82043; 82306; 82570; 84153; 84443; 85025; 85652; 86141; 86200; 86431